=== PATIENT | female | born 1950 ===

== ENCOUNTER → 2019-01-25 | Outpatient (CLI) | payer MEDICARE, BC ==
[2019-01-25 20:17] LABS: Alanine Aminotransfer (ALT/SGP 16 U/L (12-78); Albumin, Blood 3.2 g/dL (3.4-5.0); Alk Phos 79 U/L (50-136); Anion Gap 4 mmol/L (6-16); Aspartate Aminotrans (AST/SGOT 22 U/L (12-37); Bilirubin, Total 0.4 mg/dL (0.1-1.0); Blood Urea Nitrogen 14 mg/dL (8-24); Bun/Creatinine Ratio 20.7 (12.0-20.0); CO2, Blood 26 mmol/L (21-32); Calcium, Blood 8.4 mg/dL (8.5-10.1); Chloride, Blood 110 mmol/L (98-108); Creatinine, Blood 0.68 mg/dL (0.40-1.00); Globulin, Blood 3.1 g/dL (2.2-4.0); Glomerular Filtration Rate >60 (60-); Glucose, Blood 80 mg/dL (70-99); Potassium, Blood 4.5 mmol/L (3.5-5.5); Sodium, Blood 140 mmol/L (136-145); Total Protein, Blood 6.3 g/dL (6.4-8.2)
[2019-01-28 15:28] LABS: LDL/HDL RATIO 1.4; Very Low Density Lipoprot Chol 12 mg/dL (6-32)
[2019-01-28 17:13] LABS: CHOL/HDL RATIO 2.6; Cholesterol 163 mg/dL (50-200); HDL Cholesterol 62 mg/dL (>39); Low Density Lipoprotein Chol 89 mg/dL (0-110); Triglycerides 60 mg/dL (30-160)
== END ==
LOC: LAB SHORT 19:20 → LAB 19:20
PROVIDERS: Family Medicine
DX: Z13.0 Encounter for screening for diseases of the blood and blood-forming organs and certain disorders involving the immune mechanism (principal); Z13.6 Encounter for screening for cardiovascular disorders; Z13.1 Encounter for screening for diabetes mellitus; Z13.220 Encounter for screening for lipoid disorders
CPT/HCPCS: 80053; 80061

== ENCOUNTER → 2019-02-08 | Outpatient (CLI) | payer MEDICARE, BC | LOC: LAB 19:37 → LAB SHORT 19:37 | DX: E83.51 Hypocalcemia (principal) | CPT/HCPCS: 82306 ==

== ENCOUNTER → 2019-11-29 | Outpatient (CLI) | payer OTHER, MEDICARE ==
[2019-12-03 16:10] LABS: HPV 16 Negative (Negative); HPV 18 Negative (Negative); HPV OTHER HR TYPES Negative (Negative)
== END | disposition home or self-care (01) ==
LOC: LAB SHORT 08:45 → OLS 08:45
PROVIDERS: Family Medicine
DX: Z01.419 Encounter for gynecological examination (general) (routine) without abnormal findings (principal)
CPT/HCPCS: 87624; G0123